=== PATIENT | female | born 1965 | race Caucasian/White ===

== ENCOUNTER 2017-05-01 09:37 | Emergency (ER) | payer BC ==
[2017-05-01] MEDS ORDERED: ASPIRIN 81 MG TABLET, CHEWABLE PO ONE (10:39)
[2017-05-01 11:46] LABS: ABSOLUTE BASOPHILS # (AUTO) 0.1 10^3/uL (0.0-0.2); ABSOLUTE EOSINOPHILS # (AUTO) 0.1 10^3/uL (0.0-0.6); ABSOLUTE LYMPHOCYTES (AUTO) 2.4 10^3/uL (0.5-4.7); ABSOLUTE MONOCYTES (AUTO) 0.5 10^3/uL (0.1-1.4); ABSOLUTE NEUT (AUTO) 5.4 10^3/uL (1.7-8.2); BASOPHILS % (AUTO) 0.7 % (0-2); EOSINOPHILS % (AUTO) 1.8 % (0-6); HEMATOCRIT 41.5 % (36.0-47.0); HEMOGLOBIN 14.1 g/dL (12.0-15.5); HGB HCT DIFFERENCE 0.8; MEAN CORPUSCULAR HEMOGLOBIN 30.6 pg (27.0-33.4); MEAN CORPUSCULAR HGB CONC 33.9 g/dL (32.0-36.0); MEAN CORPUSCULAR VOLUME 90 fl (80-97); MONOCYTES % (AUTO) 5.5 % (3-13); RED CELL DISTRIBUTION WIDTH 14.3 % (11.5-14.0); WHITE BLOOD COUNT 8.4 10^3/uL (4.0-10.5)
--- NOTE | 2017-05-01 11:47 | RADIOLOGY REPORT (SQ) ---
EXAM DESCRIPTION: CHEST PA/LAT COMPLETED DATE/TIME: 05/01/2017 11:35 am REASON FOR STUDY: cp COMPARISON: AP CHEST 01/16/2013 EXAM PARAMETERS: NUMBER OF VIEWS: two views TECHNIQUE: Digital Frontal and Lateral radiographic views of the chest acquired. RADIATION DOSE: NA LIMITATIONS: none FINDINGS: LUNGS AND PLEURA: No opacities, masses or pneumothorax. No pleural effusion. MEDIASTINUM AND HILAR STRUCTURES: No masses or contour abnormalities. HEART AND VASCULAR STRUCTURES: Heart normal size. No evidence for failure. BONES: No acute findings. HARDWARE: None in the chest. OTHER: No other significant finding. IMPRESSION: NO SIGNIFICANT RADIOGRAPHIC FINDING IN THE CHEST. TECHNICAL DOCUMENTATION: JOB ID: [id number] [employer]- All Rights Reserved
[2017-05-01 12:15] LABS: ALANINE AMINOTRANSFERASE 34 U/L (9-52); ALBUMIN 4.1 g/dL (3.5-5.0); ALKALINE PHOSPHATASE 89 U/L (38-126); ANION GAP 11 (5-19); ASPARTATE AMINO TRANSFERASE 27 U/L (14-36); BILIRUBIN,DIRECT 0.4 mg/dL (0.0-0.4); BILIRUBIN,TOTAL 0.7 mg/dL (0.2-1.3); BLOOD UREA NITROGEN 11 mg/dL (7-20); CARBON DIOXIDE 24 mmol/L (22-30); CHLORIDE 108 mmol/L (98-107); CREATINE KINASE 88 U/L (30-135); CREATININE RESULT 0.67 mg/dL (0.52-1.25); GLUCOSE 84 mg/dL (75-110); MAGNESIUM 1.9 mg/dL (1.6-2.3); POTASSIUM 4.8 mmol/L (3.6-5.0); SODIUM 142.5 mmol/L (137-145); TOTAL PROTEIN 6.7 g/dL (6.3-8.2)
[2017-05-01 12:25] LABS: CREATINE KINASE MB 0.95 ng/mL (<4.55); TROPONIN I < 0.012 ng/mL
--- NOTE | 2017-05-01 13:36 | ER Document Report ---
ED General - General Chief Complaint: Medical Complaint Stated Complaint: FEELING OF UNWELLNESS Time Seen by Provider: 05/01/17 10:26 Mode of Arrival: Ambulatory Information source: Patient Notes: Patient presents complaining of left arm cramping sensation with a tingling sensation to the left side of her face. Patient does report a nonproductive cough for the past few days. Patient states that around 730 this morning she developed some chest discomfort that she states is not painful but just feels uncomfortable. Patient also reports occasional shortness of breath symptoms. Patient states that she was recently diagnosed with a clot in a varicose vein in her leg and that this is giving her a lot of anxiety. Patient is uncertain if her symptoms today are due to her anxiety over her clot in her leg or if she has something else going on. Patient denies any previous cardiac history. TRAVEL OUTSIDE OF THE [place] IN LAST 30 DAYS: No - HPI Onset: This morning Onset/Duration: Persistent Quality of pain: Cramping Pain Level: 2 Associated symptoms: Chest pain, Nonproductive cough, Shortness of breath. denies: Diarrhea, Nausea, Vomiting, Rhinnorhea Exacerbated by: Denies Relieved by: Denies Similar symptoms previously: No Recently seen / treated by doctor: Yes - Related Data Allergies/Adverse Reactions: sulfamethoxazole [From Bactrim] Allergy (Verified 05/01/17 09:44) trimethoprim [From Bactrim] Allergy (Verified 05/01/17 09:44) Past Medical History - General Information source: Patient - Social History Smoking Status: Current Every Day Smoker Chew tobacco use (# tins/day): No Frequency of alcohol use: Rare Drug Abuse: None Occupation: Foodservice Family History: CAD, CVA, Hyperlipidemia, Hypertension Patient has suicidal ideation: No Patient has homicidal ideation: No Pulmonary Medical History: Reports: Hx Bronchitis Renal/ Medical History: Denies: Hx Peritoneal Dialysis Past Surgical History: Reports: Hx Section, Hx Tubal Ligation Review of Systems - Review of Systems Constitutional: No symptoms reported. denies: Fever, Recent illness EENT: No symptoms reported Cardiovascular: Chest pain. denies: Palpitations Respiratory: Cough, Short of breath. denies: Hurts to breathe Gastrointestinal: No symptoms reported. denies: Abdominal pain, Nausea, Vomiting Genitourinary: No symptoms reported Female Genitourinary: No symptoms reported Musculoskeletal: No symptoms reported. denies: Back pain Skin: No symptoms reported Hematologic/Lymphatic: No symptoms reported Neurological/Psychological: No symptoms reported Physical Exam - Vital signs Vitals: Temp Pulse Resp BP Pulse Ox 98.1 F 77 16 137/65 H 100 05/01/17 09:41 05/01/17 09:41 05/01/17 09:41 05/01/17 09:41 05/01/17 09:41 - General General appearance: Appears well, Alert In distress: None - HEENT Head: Normocephalic, Atraumatic Eyes: Normal Conjunctiva: Normal Nasal: Normal Mouth/Lips: Normal Mucous membranes: Normal Pharynx: Normal Neck: Normal, Supple. No: Lymphadenopathy - Respiratory Respiratory status: No respiratory distress Chest status: Nontender Breath sounds: Normal Chest palpation: Normal - Cardiovascular Rhythm: Regular Heart sounds: S1 appreciated, S2 appreciated Murmur: No Pulses: Normal: Radial - Abdominal Inspection: Normal Distension: No distension Bowel sounds: Normal Tenderness: Nontender - Back Back: Normal, Nontender. No: CVA tenderness - Extremities General upper extremity: Normal inspection, Normal color, Normal ROM, Normal strength, Normal temperature. No: Edema General lower extremity: Normal inspection, Nontender, Normal ROM - Neurological Neuro grossly intact: Yes Cognition: Normal Orientation: AAOx4 [place] Coma Scale Eye Opening: Spontaneous [place] Coma Scale Verbal: Oriented [place] Coma Scale Motor: Obeys Commands [place] Coma Scale Total: 15 Speech: Normal. No: Dysarthria Cranial nerves: Normal. No: Facial palsy, Tongue deviation Cerebellar coordination: Normal Motor strength normal: LUE, RUE, LLE, RLE - Psychological Associated symptoms: Normal affect, Normal mood - Skin Skin Temperature: Warm Skin Moisture: Dry Skin Color: Normal Course - Re-evaluation Re-evalutation: 05/01/2017 11:[address] [place] guarding patient presentation, past medical history as well as presenting symptoms. Discussed planned diagnostic evaluation. Recommends repeating a troponin 2 hours after the first 1 is resulted. Patient without any concerning symptoms for PE at this time. No S1 Q3 T3 findings on EKG, no tachycardia or hypoxia. Pt low risk according to well's criteria. 05/01/17 13:15 Patient resting comfortably, denies any chest discomfort. Patient does complain of continued cough. Patient data regarding plan of care. 05/01/17 14:46 The patient has atypical chest pain as the patient's chest pain is not suggestive of pulmonary embolus, cardiac ischemia, aortic dissection, or other serious etiology. Given the extremely low risk of these diagnoses for the test in evaluation for these possibilities does not appear to be indicated at this time. Patient has been instructed to return if the symptoms worsen or change in any way. - Vital Signs Vital signs: Temp Pulse Resp BP Pulse Ox 97.7 F 67 16 134/47 H 98 05/01/17 15:08 05/01/17 15:08 05/01/17 15:08 05/01/17 15:08 05/01/17 15:08 - Laboratory Result Diagrams: 05/01/17 11:30 05/01/17 11:30 Laboratory results interpreted by me: 05/01/17 05/01/17 11:30 11:30 RDW 14.3 H Chloride 108 H 05/01/17 14:45 Labs- Entire Visit 05/01/17 05/01/17 05/01/17 11:30 11:30 11:30 WBC 8.4 RBC 4.60 Hgb 14.1 Hct 41.5 MCV 90 MCH 30.6 MCHC 33.9 RDW 14.3 H Plt Count 291 Seg Neutrophils % 64.0 Lymphocytes % 28.0 Monocytes % 5.5 Eosinophils % 1.8 Basophils % 0.7 Absolute Neutrophils 5.4 Absolute Lymphocytes 2.4 Absolute Monocytes 0.5 Absolute Eosinophils 0.1 Absolute Basophils 0.1 Sodium 142.5 Potassium 4.8 Chloride 108 H Carbon Dioxide 24 Anion Gap 11 BUN 11 Creatinine 0.67 Est GFR ( Amer) > 60 Est GFR (Non-Af Amer) > 60 Glucose 84 Calcium 9.0 Magnesium 1.9 Total Bilirubin 0.7 Direct Bilirubin 0.4 Neonat Total Bilirubin Not Reportable Neonat Direct Bilirubin Not Reportable Neonat Indirect Bili Not Reportable AST 27 ALT 34 Alkaline Phosphatase 89 Creatine Kinase 88 CK-MB (CK-2) 0.95 Troponin I < 0.012 Total Protein 6.7 Albumin 4.1 05/01/17 13:52 WBC RBC Hgb Hct MCV MCH MCHC RDW Plt Count Seg Neutrophils % Lymphocytes % Monocytes % Eosinophils % Basophils % Absolute Neutrophils Absolute Lymphocytes Absolute Monocytes Absolute Eosinophils Absolute Basophils Sodium Potassium Chloride Carbon Dioxide Anion Gap BUN Creatinine Est GFR ( Amer) Est GFR (Non-Af Amer) Glucose Calcium Magnesium Total Bilirubin Direct Bilirubin Neonat Total Bilirubin Neonat Direct Bilirubin Neonat Indirect Bili AST ALT Alkaline Phosphatase Creatine Kinase CK-MB (CK-2) Troponin I < 0.012 Total Protein Albumin - Diagnostic Test Radiology reviewed: Reports reviewed Discharge - Discharge Clinical Impression: Paresthesia, Anxiety about health Chest pain Qualifiers: Chest pain type: unspecified Qualified Code(s): R07.9 - Chest pain, unspecified Upper respiratory infection Qualifiers: URI type: unspecified URI Qualified Code(s): J06.9 - Acute upper respiratory infection, unspecified Condition: Stable Disposition: HOME, SELF-CARE Instructions: Anxiety ([facility]), Chest Pain of Unclear Cause ([facility]), Numbness or Paresthesia ([facility]), Upper Respiratory Illness ([facility]) Additional Instructions: Return immediately for any new or worsening symptoms Followup with your primary care provider, call tomorrow to make a followup appointment It Is important that you stop smoking Follow-up with a information technology internship for a recheck, call their office tomorrow for an appointment Prescriptions: Hydroxyzine HCl [Atarax 25 mg Tablet] 2 tab PO TID PRN #12 tablet PRN Reason: Forms: Smoking Cessation Education, Return to Work Referrals: YANET CHIN MD [ACTIVE STAFF] - Follow up as needed
--- NOTE | 2017-05-01 13:39 | EKG REPORT ---
SEVERITY:- OTHERWISE NORMAL ECG - SINUS RHYTHM VENTRICULAR PREMATURE COMPLEX LEFT AXIS DEVIATION : Confirmed by: Rick Pgae MD 01-May-2017 13:38:01
[2017-05-01 15:09] VITALS: BP 134/47
== END 2017-05-01 15:09 | disposition home or self-care (01) ==
LOC: ER 09:37
DX: J06.9 Acute upper respiratory infection, unspecified (principal); F41.9 Anxiety disorder, unspecified; R07.89 Other chest pain; I83.899 Varicose veins of unspecified lower extremity with other complications; I82.409 Acute embolism and thrombosis of unspecified deep veins of unspecified lower extremity; R25.2 Cramp and spasm; R20.2 Paresthesia of skin; R05 Cough; R06.02 Shortness of breath; Z88.1 Allergy status to other antibiotic agents; F17.200 Nicotine dependence, unspecified, uncomplicated
CPT/HCPCS: 36415; 71020; 80053; 82550; 82553; 83735; 84484; 85025; 93005; 93010; 99284

== ENCOUNTER 2019-06-08 03:04 | Emergency (ER) | payer BC ==
[2019-06-08] MEDS ORDERED: ACETAMINOPHEN 325 MG TABLET PO ONE (03:50)
[2019-06-08] MEDS ORDERED: KETOROLAC TROMETHAMINE INJ/PF 30 MG/1 ML SDV IM ONE (09:16)
[2019-06-08] MEDS ORDERED: CLINDAMYCIN HCL 150 MG CAPSULE PO ONE (09:17)
[2019-06-08] MEDS ORDERED: HYDROCODONE/ACETAMINOPHEN 5-325 MG (6 TAB/ER DISP) PO PRN (09:19)
--- NOTE | 2019-06-08 09:21 | ER Document Report ---
HPI - HPI Time Seen by Provider: 06/08/19 09:04 Pain Level: 5 Context: Patient is a 54-year-old female who presents to the emergency department with a chief complaint of right lower dental pain. Patient reports she did start having right lower dental pain about 2 days ago. Patient reports she woke up this morning with facial swelling. Patient denies fever, difficulty breathing or sore throat. Patient denies foul taste in mouth. Patient reports she did take Tylenol prior to arrival. Patient reports she has a history of poor dentition. Patient has not seen a dentist recently. Patient denies diabetes. - REPRODUCTIVE Reproductive: DENIES: : Past Medical History - General Information source: Patient - Social History Smoking Status: Current Every Day Smoker Frequency of alcohol use: None Drug Abuse: None Lives with: Family Family History: CAD, CVA, Hyperlipidemia, Hypertension Patient has suicidal ideation: No Patient has homicidal ideation: No - Past Medical History Cardiac Medical History: Reports: None Pulmonary Medical History: Reports: Hx Bronchitis EENT Medical History: Reports: None Neurological Medical History: Reports: None Endocrine Medical History: Reports: None Renal/ Medical History: Reports: None. Denies: Hx Peritoneal Dialysis Malignancy Medical History: Reports: None GI Medical History: Reports: None Musculoskeletal Medical History: Reports None Skin Medical History: Reports None Psychiatric Medical History: Reports: None Traumatic Medical History: Reports: None Infectious Medical History: Reports: None Past Surgical History: Reports: Hx Section, Hx Tubal Ligation Vertical Provider Document - CONSTITUTIONAL Agree With Documented VS: Yes Exam Limitations: No Limitations General Appearance: No Apparent Distress - INFECTION CONTROL TRAVEL OUTSIDE OF THE [place] IN LAST 30 DAYS: No - HEENT HEENT: Atraumatic, Normal ENT Exam, Normocephalic, PERRLA Mouth Diagram: 1 - Missing tooth. 2 - Missing tooth 3 - Broken tooth, no palpable abscess Notes: Patient has poor dentition with multiple missing teeth in the right lower mouth. Patient does have erythematous, line noted. No palpable abscess. Uvula is midline. Airway is patent. Patient does have right lower facial swelling. Skin is not erythematous. - NECK Neck: Normal Inspection, Supple Notes: No cervical lymphadenopathy. - RESPIRATORY Respiratory: Breath Sounds Normal, No Respiratory Distress - CARDIOVASCULAR Cardiovascular: Regular Rate, Regular Rhythm - GI/ABDOMEN Gastrointestinal: Abdomen Soft, Abdomen Non-Tender, Normal Bowel Sounds - MUSCULOSKELETAL/EXTREMETIES Musculoskeletal/Extremeties: FROM, Non-Tender - NEURO Level of Consciousness: Awake, Alert, Appropriate - DERM Integumentary: Warm, Dry, No Rash Course - Re-evaluation Re-evalutation: 06/08/19 10:13 We will treat the patient for dental infection with clindamycin due to the facial swelling. I did inform the patient since she does have insurance to call multiple dentist on Sunday to establish a follow-up appointment. Patient in no acute distress. - Vital Signs Vital signs: Temp Pulse Resp BP Pulse Ox 98.2 F 74 16 142/68 H 99 06/08/19 08:18 06/08/19 08:18 06/08/19 08:18 06/08/19 08:18 06/08/19 08:18 Discharge - Discharge Clinical Impression: Dental infection, Facial swelling Condition: Stable Disposition: HOME, SELF-CARE Instructions: Clindamycin ([facility]) Additional Instructions: *Today was seen in the emergency department for dental pain. You do have some facial swelling associated with this. Does appear that you have an infection but at this time there is no abscess that needs to be drained. We will place you on oral antibiotics. We have given your first dose here in the emergency department. You need to get this filled today and take your second and third dose later. You are being given 800 mg ibuprofen to take. This will help with inflammation and swelling. You are also given Norman. Norman is a narcotic, do not drive or operate heavy machinery while on this medication. Dental Infection or Abscess You have an infection, perhaps an abscess (pus formation) of the gum around one of your teeth, which is probably decayed. If there is an abscess, it may drain on its own or it may need to be opened or lanced. Severe swelling or drainage around a tooth usually means a deep dental abscess which usually requires evaluation and treatment by a dentist or oral surgeon. Antibiotics may be prescribed while awaiting dental treatment. If you develop high fever with chills, worsening pain, or increasing swelling in the area, see a dentist or oral surgeon immediately or return to the Emergency Department immediately. Prescriptions: Clindamycin HCl [Cleocin 150 mg Capsule] 450 mg PO TID 7 Days #63 Ibuprofen [Motrin 800 mg Tablet] 800 mg PO Q8H PRN #30 tab PRN Reason: Forms: Return to Work Referrals: [facility] [Provider Group] - Follow up as needed [facility] [Provider Group] - Follow up as needed
[2019-06-08 09:42] VITALS: BP 123/57
== END 2019-06-08 09:52 | disposition home or self-care (01) ==
LOC: ER 03:04
DX: K04.7 Periapical abscess without sinus (principal); R22.0 Localized swelling, mass and lump, head; F17.200 Nicotine dependence, unspecified, uncomplicated; Z98.51 Tubal ligation status
CPT/HCPCS: 99282; 96372; J1885